=== PATIENT | female | born 1995 | race Caucasian/White ===

== ENCOUNTER 2024-05-16 13:15 | Inpatient (IN) | payer OTHER ==
[~2024-05-16] VITALS: Ht 165.1 cm; Wt 79.8 kg
[2024-05-20] MEDS ORDERED: OXYTOCIN 500 ML IV NR (12:45)
[2024-05-20] MEDS ORDERED: PRENATAL TABLE1 EAC4 PO (12:53)
[2024-05-20 12:56] LABS: HEMATOCRIT 37.5 % (36.0-45.00); HEMOGLOBIN 12.5 g/dL (12.0-15.00); MEAN CELL VOLUME 85.3 fL (80.00-100.00); MEAN CORPUSCULAR HEMOGLOBIN 28.3 pg (27.00-32.0); MEAN CORPUSCULAR HGB CONC 33.2 g/dl (32.0-36.0); PLATELET COUNT 190 K/uL (150-450); RED CELL DISTRIBUTION WIDTH 13.5 % (11.5-14.5)
[2024-05-20] MEDS ORDERED: RINGERS SOLUTION,LACTATED 1,000 ML IV SCH (13:15)
[2024-05-20 13:17] LABS: INR < 0.93; PARTIAL THROMBOPLASTIN TIME 23.4 SECONDS (22.0-34.0); PROTHROMBIN TIME 9.3 SECONDS (9.0-11.5)
[2024-05-20] MEDS ORDERED: OXYTOCIN 20 UNITS/1000ML RL PIGGYBAG IV ONE (15:10)
[2024-05-20] MEDS ORDERED: CHLORHEXIDINE GLUCONATE 120 ML BOTTLE TOP ONE ×2 (15:10→18:30)
[2024-05-20] MEDS ORDERED: ERYTHROMYCIN BASE 1 GM TUBE OP ONE ×2 (15:10→18:30)
[2024-05-20] MEDS ORDERED: LIDOCAINE HCL 1% 10ML VIAL ONE (15:11)
[2024-05-20] MEDS ORDERED: METHYLERGONOVINE MALEATE 0.2 MG/ML AMPUL ONE (17:43)
[2024-05-20] MEDS ORDERED: IBUprofen 400 MG TABLET PO PRN (18:00)
[2024-05-20] MEDS ORDERED: OXYTOCIN 1,000 ML IV SCH (18:00)
[2024-05-20] MEDS ORDERED: OxyCODONE HCL/APAP UD (PERCOCET) PO PRN (18:00)
[2024-05-20] MEDS ORDERED: LIDOCAINE HCL 1% 10ML VIAL IJ ONE (18:30)
[2024-05-20] MEDS ORDERED: METHYLERGONOVINE MALEATE 0.2 MG/ML AMPUL IM ONE (18:45)
[2024-05-21 08:01] LABS: HEMATOCRIT 29.1 % (36.0-45.00); MEAN CELL VOLUME 83.7 fL (80.00-100.00); MEAN CORPUSCULAR HGB CONC 33.3 g/dl (32.0-36.0); RED BLOOD COUNT 3.48 M/uL (4.00-6.00); RED CELL DISTRIBUTION WIDTH 13.9 % (11.5-14.5)
[2024-05-21 08:02] LABS: MEAN CORPUSCULAR HEMOGLOBIN 27.8 pg (27.00-32.0)
[2024-05-21 08:03] LABS: HEMOGLOBIN 9.7 g/dL (12.0-15.00); PLATELET COUNT 108 K/uL (150-450)
[2024-05-21] MEDS ORDERED: IRON/V.C/V.B12/FOLIC A/VIT. E 1 CAPL CAPLET PO SCH (12:02)
== END 2024-05-22 12:06 | disposition home or self-care (01) | DRG 807 ==
LOC: OB/GYN 05-20 12:28 → LDR 05-20 12:28 → OB/GYN 05-20 18:20
PROVIDERS: Obstetrics & Gynecology; ADMIT Obstetrics & Gynecology; ATTEND Obstetrics & Gynecology
PROC: 10E0XZZ Delivery of Products of Conception, External Approach (ICD-10-PCS; principal; 2024-05-20)
PROC: 0UQG7ZZ Repair Vagina, Via Natural or Artificial Opening (ICD-10-PCS; 2024-05-20)
PROC: 4A1HXCZ Monitoring of Products of Conception, Cardiac Rate, External Approach (ICD-10-PCS; 2024-05-20)
DX: O71.4 Obstetric high vaginal laceration alone (principal); Z37.0 Single live birth; Z3A.39 39 weeks gestation of pregnancy; Z20.822 Contact with and (suspected) exposure to COVID-19

== ENCOUNTER 2024-05-19 10:48 | Outpatient (CLI) | payer OTHER ==
[2024-05-20] MEDS ORDERED: PRENATAL TABLE1 EAC4 PO (12:53)
== END 2024-05-19 11:41 | disposition home or self-care (01) ==
LOC: NST 10:48
PROVIDERS: ATTEND Obstetrics & Gynecology
DX: Z34.83 Encounter for supervision of other normal pregnancy, third trimester (principal)